=== PATIENT | male | born 1990 | race Two or more races ===

== ENCOUNTER 2020-03-03 20:44 | Emergency (ER) | payer OTHER ==
[~2020-03-03] VITALS: Ht 167.6 cm; Wt 83.9 kg
[~2020-03-03 20:44] MED LIST: ACET325 PO; CEPH500 PO; CYCL10 PO; FAMO40 PO; Norco 5-325 Ta1 EACH PO; OXYACE5T PO
== END 2020-03-03 22:55 | disposition home or self-care (01) ==
LOC: ER 20:44
DX: S00.83XA Contusion of other part of head, initial encounter (principal); F17.200 Nicotine dependence, unspecified, uncomplicated; Z23 Encounter for immunization; W05.2XXA Fall from non-moving motorized mobility scooter, initial encounter
CPT/HCPCS: 70450; 90471; 90714; 99283-25